=== PATIENT | female | born 1995 | race Caucasian/White ===

== ENCOUNTER 2020-05-22 08:00 | Emergency (ER) | payer OTHER ==
[~2020-05-22] VITALS: Ht 172.7 cm; Wt 70.8 kg
[2020-05-22] MEDS ORDERED: SYNTHROID150 MCG (08:22)
[2020-05-22] MEDS ORDERED: NORFLEX100MG PO (12:03)
[2020-05-22] MEDS ORDERED: IVERMECTIN3 MG PO (12:03)
[2020-05-29] MEDS ORDERED: TUSNEL LIQUID178 ML PO (15:48)
[2020-05-29] MEDS ORDERED: DOLOGEN CAPLET1 EACH PO (15:48)
[2020-05-29] MEDS ORDERED: CLARITIN10 M1 PO (15:48)
== END 2020-05-22 12:37 | disposition home or self-care (01) ==
LOC: ER 08:00
DX: B34.9 Viral infection, unspecified (principal); Z20.822 Contact with and (suspected) exposure to COVID-19